=== PATIENT | female | born 1945 | race Caucasian/White ===

== ENCOUNTER 2019-11-30 14:51 | Outpatient (CLI) | payer MEDICARE, MEDICAID, SELFPAY ==
--- NOTE | ~2019-11-30 | MR_ITS ---
EXAMINATION: MR abdomen wo/w con INDICATION: Mass of the pancreas TECHNIQUE: Coronal SSFSE ARC, WATER:coronal LAVA-FLEX, Coronal 2D FIESTA FatSat, Axial SSFSE BH ARC, Axial 3D DualEcho BH, Axial SSFSE-IR, Axial DWI b=500, Axial 2D FIESTA FatSat, pre and dynamic postco ntrast Axial LAVA ARC, postcontrast Coronal In and Opposed phase LAVA FLEX COMPARISON: None available CONTRAST: Multihance, 16 cc FINDINGS: The gallbladder is surgically absent. The liver, spleen, and adrenal glands are normal. The re is a 1.2 cm cyst of the right kidney lower pole. There is an 11 mm hemorrhagic cyst of the left mi d kidney. There is a 1.7 x 1.0 cm cystic lesion in the head of the pancreas which does not appear to communicate with the main pancreatic duct. There is no abnormal enhancement in the lesion after contr ast administration. Multiple smaller cystic lesions are seen in the body and the tail of the pancreas which measure up to 4 mm. The pancreatic duct is normal in caliber. The common bile duct measures up to 10 mm, consistent with post cholecystectomy state. There are no dilated loops of bowel. IMPRESSION: 1. 1.7 cm cystic lesion in the head of the pancreas. The differential diagnosis includes pseudocyst, intraductal papillary mucinous neoplasm (IPMN), mucinous cystic neoplasm (MCN), and the less common s erous cystadenoma and neuroendocrine tumor. Correlate for history of pancreatitis. 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 Follow-up CT or MRI without and with contrast in six months is recommended. Reviewed, dictated and finalized at location A. IMPRESSION: 1. 1.7 cm cystic lesion in the head of the pancreas. The differential diagnosis includes pseudocyst, intraductal papillary mucinous neoplasm (IPMN), mucinous cystic neoplasm (MCN), and the less common serous cystadenoma and neuroendocrin e tumor. Correlate for history of pancreatitis. 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 Follow-up CT or MRI without and with contrast in six months is recommended.
[2019-11-30 15:55] LABS: Estimated Glomerular Filt Rate > 60
== END 2019-11-30 14:52 | disposition home or self-care (01) ==
DX: K86.89 Other specified diseases of pancreas (principal)
CPT/HCPCS: 36415; 74183; A9577

== ENCOUNTER → 2021-03-29 11:40 | Outpatient (CLI) | payer MEDICARE, MEDICAID, SELFPAY ==
--- NOTE | ~2021-03-29 | MR_ITS ---
EXAMINATION: MR cervical spine wo con EXAM DATE: 03/29/2021 13:09 INDICATION: Neck, upper back pain. Bilateral arm pain and weakness. Cervical radiculopathy. [employer] pain pump. TECHNIQUE: Multi-sequential, multiplanar MR images of the cervical spine were obtained without contra st. Axial T2, axial T2 MERGE sequence. Sagittal T1, T2, T2 fat saturation images also obtained. Com parison is made to prior examination from 09/03/2017. FINDINGS: There is moderate to severe disc disease C4-C7. The vertebral bodies are aligned in the AP dimension. The spinal cord signal intensity and intrinsic morphology is normal. Cervicomedullary junc tion is normal in appearance. There are no suspicious marrow signal abnormalities. Paraspinal soft ti ssue is unremarkable. Level by level evaluation: C2-C3: Disc does not extend beyond the endplate margin. Uncovertebral joint arthropathy: Mild left. Facet joint arthropathy: Mild bilateral. Neural foraminal stenosis: No stenosis. Central canal stenosis: No stenosis. C3-C4: There is a mild diffuse disc bulge. Uncovertebral joint arthropathy: Moderate left, mild to moderate right. Facet joint arthropathy: Moderate bilateral. Neural foraminal stenosis: Severe left, mild to moderate right. Central canal stenosis: Mild . Central canal measures 7 mm in mid sagittal AP diameter . C4-C5: There is a mild to moderate diffuse disc bulge. Uncovertebral joint arthropathy: Severe bilateral. Facet joint arthropathy: Moderate bilateral. Neural foraminal stenosis: Severe bilateral. Central canal stenosis: Mild to moderate . Central canal measures 6 mm in mid sagittal AP diameter . C5-C6: There is a mild to moderate diffuse disc bulge. Uncovertebral joint arthropathy: Severe bilateral. Facet joint arthropathy: Severe left, moderate right. Neural foraminal stenosis: Severe bilateral. Central canal stenosis: Mild to moderate . Central canal measures 5-6 mm in mid sagittal AP diameter . C6-C7: There is a mild to moderate diffuse disc bulge. Uncovertebral joint arthropathy: Severe right, moderate to severe left. Facet joint arthropathy: Mild bilateral. Neural foraminal stenosis: Moderate to severe right, moderate left. Central canal stenosis: Mild to moderate . Central canal measures 6 mm in mid sagittal AP diameter . C7-T1: There is a mild diffuse disc bulge. Uncovertebral joint arthropathy: Moderate bilateral. Facet joint arthropathy: Moderate right, mild left. Neural foraminal stenosis: Moderate right. Central canal stenosis: Mild. Mild progression spondylosis compared to 2018. IMPRESSION: Severe cervical spondylosis. Reviewed, dictated and finalized at location B.
--- NOTE | ~2021-03-29 | MR_ITS ---
EXAMINATION: MR lumbar spine wo [facility] EXAM DATE: 03/29/2021 13:10 INDICATION: Low back pain. Lumbar spondylosis. TECHNIQUE: Multi-sequential, multiplanar MR images of the lumbar spine were obtained without contrast . Sagittal T1, T2, T2 fat saturation images. Axial T2 weighted images. Comparison is made to prior examination from 10/27/2017. FINDINGS: Evidence of prior lumbar surgery at L4-5, L5 laminectomies. 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 Possible interbo dy devices at this level. There is 2-3 mm retrolisthesis L2 on L3 and anterolisthesis L3 on L4. Moder ate disc disease at these 2 levels. The conus medullaris terminates at the T12-L1 level and has josue l signal intensity and morphology. Paraspinal soft tissue is unremarkable. Level by level evaluation: T12-L1: There is a mild diffuse disc bulge. Facet arthropathy: Mild bilateral. Neural foraminal stenosis: Minimal right. Central canal stenosis: No stenosis. L1-L2: There is a mild diffuse disc bulge. Facet arthropathy: Mild bilateral. Neural foraminal stenosis: Mild to moderate right, mild left. Central canal stenosis: Mild. L2-L3: There is a moderate diffuse disc bulge. Facet arthropathy: Moderate to severe left, moderate right. Neural foraminal stenosis: Moderate to severe right, moderate left. Central canal stenosis: Mild to moderate. L3-L4: There is a large diffuse disc bulge. Facet arthropathy: Severe . Ligamentum flavum enlargement. Neural foraminal stenosis: Moderate to severe bilateral. Central canal stenosis: Severe. L4-L5: Bulging disc and anterolisthesis Facet arthropathy: Severe. Neural foraminal stenosis: Moderate to severe left, moderate right. Central canal stenosis: Severe, more than the level above. L5-S1: There is a mild diffuse disc bulge. Facet arthropathy: Mild to moderate. Neural foraminal stenosis: Moderate left, mild right. Central canal stenosis: Mild. It is difficult to appreciate any significant interval change compared to 2018. IMPRESSION: Subluxations at L3-4 and L4-5 with severe central canal stenosis at both these levels. Reviewed, dictated and finalized at location B.
== END ==
PROVIDERS: Visit Provider Nurse Practitioner Family
DX: M54.5 Low back pain (principal); M47.22 Other spondylosis with radiculopathy, cervical region
CPT/HCPCS: 72141; 72148

== ENCOUNTER 2024-03-11 09:49 | Outpatient (CLI) | payer MEDICARE, MEDICAID, SELFPAY ==
--- NOTE | ~2024-03-11 | MR_ITS ---
MRI of the cervical spine Clinical History: Cervical radiculopathy Technique: Axial T2-weighted and gradient images, and sagittal T1-weighted, T2-weighted, and STIR laura ges were acquired. Findings: There is no fracture or subluxation of the cervical spine. There is straightening of the no rmal cervical lordosis. No suspicious bone marrow signal abnormality seen. At C2-C3, there is mild disc osteophyte convex. There is mild facet arthropathy. No central canal gary nosis, cord compression, or definite neural foraminal narrowing. At C3-C4, there is moderate degenerative disc narrowing. There is disc osteophyte complex, resulting in moderate canal stenosis and cord compression. There is bilateral facet arthropathy with significan t bilateral neural foraminal narrowing. At C4-C5, there is advanced degenerative disc narrowing. Disc osteophyte complex results in moderate canal stenosis and cord compression. There is severe bilateral neural foraminal narrowing. At C5-C6, there is severe degenerative disc narrowing. Disc osteophyte complex results in mild canal stenosis and cord compression. There is severe bilateral neural foraminal narrowing. At C6-C7, there is severe degenerative disc narrowing. Disc osteophyte complex results in moderate ca nal stenosis and cord compression. There is severe bilateral neural foraminal narrowing. No definite abnormal signal seen in the spinal cord. Paravertebral soft tissues are unremarkable. Impression: Severe degenerative spondylosis, with multilevel moderate canal stenosis and cord compression, as wel l as multilevel severe neural foraminal narrowing. Please see details above. Reviewed, dictated and finalized at [facility]. Impression: Severe degenerative spondylosis, with multilevel moderate canal stenosis and co rd compression, as well as multilevel severe neural foraminal narrowing. Please see details above.
--- NOTE | ~2024-03-11 | MR_ITS ---
MRI of the lumbar spine Clinical History: Back pain Technique: Axial T2-weighted images, and sagittal T1-weighted, T2-weighted, and T2 fat-sat images wer e acquired. Findings: There is no acute fracture. There is 7 mm anterolisthesis of L4 over L5. No suspicious bone marrow signal abnormality seen. At L1-L2, there is no disc bulge or herniation. There is moderate facet arthropathy. No central canal stenosis. There is mild right neural foraminal narrowing. Left neural foramen preserved. At L2-L3, there is moderate degenerative distended. There is diffuse disc bulge and advanced facet ar thropathy, with moderate to severe spinal canal stenosis/thecal sac compression. There is severe righ t neural foraminal narrowing, and moderate to severe left neural foraminal narrowing. L3-L4, there is moderate to advanced degenerative disc narrowing. There is diffuse disc bulge with pr obable superimposed posterior disc protrusion. There is severe facet arthropathy. There is severe spi nal canal stenosis/thecal sac compression. There is severe bilateral neural foraminal narrowing. At L4-L5, there is severe degenerative disc narrowing. There is disc bulge and uncovering with severe facet arthropathy, resulting in severe spinal canal stenosis/thecal sac compression. There is severe bilateral neural foraminal compromise. At L5-S1, there is minimal disc bulge. There is severe facet arthropathy. No central canal stenosis. There is moderate to severe left neural foraminal narrowing. Right neural foramen minimally narrowed. Paravertebral soft tissues are unremarkable. Impression: Severe degenerative spondylosis, especially at L2-L3, L3-L4, and L4-L5. 7 mm anterolisthesis of L4 over L5. Reviewed, dictated and finalized at [facility]. Impression: Severe degenerative spondylosis, especially at L2-L3, L3-L4, and L4-L5. 7 mm anterolisthesis of L4 over L5.
== END 2024-03-11 09:50 ==
LOC: MICIMG 09:51
PROVIDERS: Visit Provider Nurse Practitioner Family
DX: M47.22 Other spondylosis with radiculopathy, cervical region (principal); M48.02 Spinal stenosis, cervical region; G95.20 Unspecified cord compression; M47.816 Spondylosis without myelopathy or radiculopathy, lumbar region
CPT/HCPCS: 72141; 72148